=== PATIENT | male | born 1965 | race Caucasian/White ===

== ENCOUNTER → 2024-02-25 11:55 | Outpatient (CLI) | payer OTHER, SELFPAY ==
--- NOTE | 2024-02-25 11:59 | DI.MRI.S_ITS ---
PROCEDURE: MR LUMBAR SPINE WO CON INDICATIONS: Spinal Stenosis Lumbar region TECHNIQUE: Noncontrast sagittal T1 spin echo and T2 fast echo, sagittal STIR, and T2 fast spin echo through the lumbar spine. In cases with scoliosis, additional coronal T2 fast spin echo may be performed. COMPARISON: [facility] Outside Film, CR, XR LUMBAR SPINE 2 OR 3 VIEWS, 12/24/2023, 9:32. FINDINGS: Image quality: Excellent. Alignment and Curvature: There is normal bony alignment. Bone Marrow: Marrow is of normal overall signal. Increased T1 and T2 signal is present at L2 consistent with hemangioma. No acute vertebral body compression fractures. Spinal Cord: Conus medullaris terminates at the L1 level. Visualized cord demonstrates normal signal and size. Paraspinous Soft Tissues: No paravertebral masses. Discs: Multilevel [id number] disc desiccation most severe at L2-3, L5-S1. T12-L1: No disc bulge, spinal stenosis or foraminal narrowing. L1-L2: No disc bulge, spinal stenosis or foraminal narrowing. Mild facet hypertrophy. L2-L3: Mild disc bulge with large prominent posterior central protrusion. There is indentation of the anterior thecal sac consistent with moderate spinal stenosis. Moderate right and [id number] foraminal narrowing with facet and ligamentum flavum hypertrophy. L3-L4: Mild disc bulge with mild spinal stenosis. Vobc-tn-[id number] bilateral foraminal narrowing with facet and ligamentum flavum hypertrophy. L4-L5: Mild disc bulge with mild spinal stenosis. Moderate to severe bilateral foraminal narrowing with facet and ligamentum flavum hypertrophy. L5-S1: Mild disc bulge including a left lateral/foraminal component. Moderate left and mild right foraminal narrowing. It is noted that there is moderate narrowing through the left subarticular recess. Facet and ligamentum flavum hypertrophy are present. IMPRESSION: Multilevel disc bulges. Multilevel spinal stenosis most severe at L2-3 secondary to prominent protrusion. Multilevel foraminal narrowing overall most prominent L2-3 and L5-S1 secondary to facet/ligamentum flavum arthropathy. Dictated by: Carola Quezada M.D. on 02/25/2024 at 16:24 Approved by: Carola Quezada M.D. on 02/25/2024 at 16:29
== END ==
LOC: MRI 11:59
PROVIDERS: PCP Physician Assistant; Referring Provider Orthopaedic Surgery Orthopaedic Surgery of the Spine; Visit Provider Orthopaedic Surgery Orthopaedic Surgery of the Spine
DX: M48.062 Spinal stenosis, lumbar region with neurogenic claudication (principal); M47.816 Spondylosis without myelopathy or radiculopathy, lumbar region; M51.36 Other intervertebral disc degeneration, lumbar region; M51.26 Other intervertebral disc displacement, lumbar region; M51.37 Other intervertebral disc degeneration, lumbosacral region; M48.07 Spinal stenosis, lumbosacral region; M47.817 Spondylosis without myelopathy or radiculopathy, lumbosacral region
CPT/HCPCS: 72148